=== PATIENT | female | born 1995 | race Two or more races ===

== ENCOUNTER 2023-05-02 21:09 | Emergency (ER) | payer OTHER ==
[~2023-05-02] VITALS: Ht 152.4 cm; Wt 47.6 kg
== END 2023-05-02 22:27 | disposition home or self-care (01) ==
LOC: ER 21:11
DX: M25.512 Pain in left shoulder (principal)

== ENCOUNTER 2024-04-27 14:08 | Emergency (ER) | payer OTHER ==
[~2024-04-27] VITALS: Ht 152.4 cm; Wt 45.4 kg
[2024-04-27 16:37] LABS: HEMOGLOBIN 12.9 g/dL (12.0-15.00); MEAN CELL VOLUME 92.1 fL (80.00-100.00); MEAN CORPUSCULAR HGB CONC 34.8 g/dl (32.0-36.0); PLATELET COUNT 169 K/uL (150-450); RED BLOOD COUNT 4.01 M/uL (4.00-6.00); RED CELL DISTRIBUTION WIDTH 13.3 % (11.5-14.5)
[2024-04-27 16:59] LABS: ALBUMIN 3.7 gm/dL (3.4-5.0); BILIRUBIN TOTAL 0.28 mg/dL (0.3-1.2); CALCIUM 8.8 mg/dL (8.5-10.1); CREATININE SERUM 0.77 mg/dL (0.55-1.02); GFR 88.63; GLOBULINA 3.9 G/DL (2.4-3.5); POTASSIUM 4.22 mEq/L (3.5-5.1); TOTAL PROTEIN 7.6 gm/dL (6.4-8.2)
[2024-04-27 18:18] LABS: COCAINE NEGATIVE (NEGATIVE); METHADONE NEGATIVE (NEGATIVE); OPIATES NEGATIVE (NEGATIVE); THC ( Cannabinoids) POSITIVE (NEGATIVE)
== END 2024-04-27 19:26 | disposition home or self-care (01) ==
LOC: ER 14:10
DX: R53.81 Other malaise (principal); F12.90 Cannabis use, unspecified, uncomplicated